=== PATIENT | male | born 1950 | race Caucasian/White ===

== ENCOUNTER → 2024-12-01 15:13 | Outpatient (CLI) | payer OTHER, SELFPAY ==
--- NOTE | 2024-12-01 16:55 | DI.RAD.S_ITS ---
PROCEDURE: XR CHEST 2V INDICATIONS: SHORTNESS OF BREATHE TECHNIQUE: 2 views of the chest were acquired. COMPARISON: None. FINDINGS: Surgical changes and devices: None. Lungs and pleura: No consolidation. Minimal streaky opacity at the left lung base. No pleural effusions or pneumothorax. Mediastinum: Mediastinal contours are normal. Heart size is normal. Bones and chest wall: No suspicious bony abnormalities. Soft tissues appear unremarkable. IMPRESSION: Minimal streaky opacity at the left lung base. Favor atelectasis. Dictated by: Jarrett Bowen M.D. on 12/02/2024 at 16:11 Approved by: Jarrett Bowen M.D. on 12/02/2024 at 16:11
== END ==
PROVIDERS: Referring Provider Chiropractor; Visit Provider Chiropractor
DX: R06.02 Shortness of breath (principal); R91.8 Other nonspecific abnormal finding of lung field
CPT/HCPCS: 71046; 94060